=== PATIENT | female | born 1940 | race Caucasian/White ===

== ENCOUNTER 2017-05-07 06:49 | Inpatient (IN) | payer OTHER ==
[~2017-05-07 06:49] MED LIST: BACITRACIN 50,000 UNITS/10 ML SYR IRR ONE; BUPIVACAINE 0.25% 30 ML SDV ONE; CHLORHEXIDINE GLUC HIBICLENS 118 ML BTL TP ONE; CITRATE DEXTROSE SOLN 500 ML BAG ONE; THROMBIN (BOVINE) 20,000 UNIT VIAL TP ONE; ceFAZolin 2 GM/SWFI 2 GM/20 ML SYR IVP ONE; ceFAZolin 3 GM in D5W 100 ML IV ONE
[2017-05-07] MEDS ORDERED: ACETAMINOPHEN 500 MG TAB PO ONE (07:23)
[2017-05-07] MEDS ORDERED: GABAPENTIN 300 MG CAP PO ONE (07:23)
[2017-05-07] MEDS ORDERED: morphINE PF 5 MG/10 ML INJ IT ONE (07:23)
[2017-05-07] MEDS ORDERED: morphINE SR 15 MG TAB PO ONE (07:23)
[2017-05-07] MEDS ORDERED: LR 1,000 ML IV ONE (07:24)
[2017-05-07] MEDS ORDERED: LIDOCAINE 1% 2 ML INJ ID PRN (07:24)
--- NOTE | 2017-05-07 07:45 | PDANEPAE ---
ANE History of Present Illness 76 year old female presents for redo lumbar/sacral fusion. ANE Past Medical History - Cardiovascular History Hx Hypertension: No Hx Arrhythmias: No Hx Chest Pain: No Hx Coronary Artery / Peripheral Vascular Disease: No Hx CHF / Valvular Disease: No Hx Palpitations: No - Pulmonary History Hx COPD: No Hx Asthma/Reactive Airway Disease: No Hx Recent Upper Respiratory Infection: No Hx Oxygen in Use at Home: No Hx Sleep Apnea: No Sleep Apnea Screening Result - Last Documented: Negative - Neurologic History Hx Cerebrovascular Accident: No Hx Seizures: No Hx Dementia: No Neurologic History Comment: HX MIGRAINES - Endocrine History Hx Diabetes: No Hypothyroid: No Hyperthyroid: No Obesity: no - Renal History Hx Renal Disorders: No - Liver History Hx Hepatic Disorders: No Hepatic History Comment: HX PANCREATITIS - Neurological & Psychiatric Hx Hx Neurological and Psychiatric Disorders: No Neurological / Psychiatric History Comment: BIPOLAR. DEPRESSION - Cancer History Hx Cancer: No - Congenital Disorder History Hx Congenital Disorders: No - GI History GERD: no Hx Gastrointestinal Disorders: No Gastrointestinal History Comment: CONSTIPATION - Other Health History Other Health History: LOW BACK PAIN. NEURALGIA. PARESTHESIS. DJD. bruises easily - Chronic Pain History Chronic Pain: Yes (BACK) - Surgical History Prior Surgeries: R SHOULDER 2010. THUMB 2009. LASIK, THUMB 2004. CHOLECYSTECTOMY 2002. BREAST REDUCTION 1975. BTL 1974. ANKLE REPAIR 1974 ANE Review of Systems Review of systems is: negative Review of Systems: - Exercise capacity Exercise capacity: >=4 METS METS (RN): 4 METS ANE Patient History - Allergies Allergies/Adverse Reactions: No Known Allergies Allergy (Unverified 03/29/17 10:34) - Home Medications Home medications: home medication list seen and reviewed Home Medications: Acetaminophen [Tylenol ES 500 mg (*)] 1,000 mg PO BID PRN 08/01/15 [Last Taken 05/06/17] Calcium Carbonate [Oyster Shell Calcium 500 mg (*)] 500 mg PO DAILY 08/01/15 [ Last Taken 04/30/17] Cholecalciferol Vit D3 [Vitamin D3 (*)] 1,000 units PO DAILY 08/01/15 [Last Taken 04/30/17] Citalopram Hydrobromide [celeXA 10 MG] 10 mg PO HS 08/01/15 [Last Taken 05/06/17 ] LORazepam [Ativan (*)] 0.5 mg PO DAILY PRN 08/01/15 [Last Taken 04/30/17] [place] Carbonate 150 mg PO DAILY 08/01/15 [Last Taken 05/07/17 06:15] [place] Carbonate 300 mg PO HS 08/01/15 [Last Taken 05/06/17] Multivitamins [Multivitamin (*)] 1 each PO DAILY 08/01/15 [Last Taken 04/30/17] OXcarbazepine [Trileptal 300mg (*)] 150 mg PO DAILY 08/01/15 [Last Taken 06:15] OXcarbazepine [Trileptal 300mg (*)] 300 mg PO HS 08/01/15 [Last Taken 05/06/17] Simethicone [Gas-X] 62.5 mg PO PRN PRN 08/01/15 [Last Taken 04/30/17] buPROPion SR [Wellbutrin 100mg SR (*)] 100 mg PO DAILY 08/01/15 [Last Taken 06:15] Herbals/Supplements -Info Only 1 ea PO DAILY 03/29/17 [Last Taken 04/30/17] Melatonin [Melatonin 3 MG (*)] 3 mg PO HS 03/29/17 [Last Taken 05/06/17] [place]-3 Fatty Acids [Fish Oil 1000 mg (*)] 1,000 mg PO DAILY 03/29/17 [Last Taken 04/30/17] Polyethylene Glycol 3350 [Miralax 17 gm (*)] 17 gm PO DAILY PRN 03/29/17 [Last Taken 05/06/17] - NPO status NPO Status: no food or drink >8 hours NPO Since - Liquids (Date): 05/06/17 NPO Since - Liquids (Time): 22:00 NPO Since - Solids (Date): 05/06/17 NPO Since - Solids (Time): 19:30 - Anes Hx Anes Hx: post operative cognitive dysfunction Hx Anesthesia Complications (with details): Confusion surrounding the time of a previous surgery. May or may not be related to anesthesia. Inpatient records indicate some concern for delerium/hallucinations related to administration of anti-histamines. - Smoking Hx Smoking Status: Never smoked - Alcohol Use Alcohol Use: Rarely - Family Anes Hx Family Anes Hx: neg - N/A Family Hx Anesthesia Complications: NONE ANE Labs/Vital Signs - Vital Signs Vital Signs: reviewed preoperatively; see RN documention for details Blood Pressure: 122/75 Heart Rate: 73 Respiratory Rate: 16 O2 Sat (%): 94 Height: 160.02 cm Weight: 61.235 kg ANE Physical Exam - Airway Neck exam: FROM Mallampati Score: Class 2 Mouth exam: normal dental/mouth exam - Pulmonary Pulmonary: no respiratory distress - Cardiovascular Cardiovascular: regular rate and rhythym - ASA Status ASA Status: II ANE Anesthesia Plan Anesthesia Plan: general endotracheal anesthesia Total IV Anesthesia: No
--- NOTE | 2017-05-07 07:55 | PDHPUP ---
History & Physical Update H&P update statement: This history and physical update is based on an assessment of the patient which was completed after admission or registration (within 24 hours), but prior to the surgery/procedure. H&P update: H&P reviewed & patient examined, no change in patient's condition since H&P completed H&P changes: Consents signed and site marked.
[2017-05-07] MEDS ORDERED: fentaNYL 100 MCG/2 ML INJ ONE ×2 (08:11→12:30)
[2017-05-07] MEDS ORDERED: PROPOFOL 200 MG/20 ML VIAL ONE (08:11)
[2017-05-07] MEDS ORDERED: PROPOFOL/EMULSION 500 MG/50 ML BOTTLE IV ONE (08:11)
[2017-05-07] MEDS ORDERED: REMIFENTANIL HCL 1 MG VIAL ONE (08:11)
[2017-05-07] MEDS ORDERED: LIDOCAINE 2% 5 ML SDV ONE (08:16)
[2017-05-07] MEDS ORDERED: ROCURONIUM 50 MG/5 ML VIAL ONE (08:16)
[2017-05-07] MEDS ORDERED: PHENYLEPHRINE HCL 100 MCG/ML SYR ONE (08:16)
[2017-05-07] MEDS ORDERED: epHEDrine SULFATE 10 MG/ML SYR ONE (09:06)
[2017-05-07] MEDS ORDERED: ONDANSETRON 4 MG/2 ML VIAL ONE (09:25)
[2017-05-07] MEDS ORDERED: DEXAMETHASONE 4 MG/ML VIAL ONE (09:25)
[2017-05-07] MEDS ORDERED: OXYCODONE/APAP 5/325 TAB PO PRN (09:38)
[2017-05-07] MEDS ORDERED: HYDROmorphONE/DILAUDID 1 MG/ML INJ IVP PRN ×2 (09:38→12:13)
[2017-05-07] MEDS ORDERED: LR 500 ML IV PRN (09:38)
[2017-05-07] MEDS ORDERED: fentaNYL 100 MCG/2 ML INJ IVP PRN (09:38)
[2017-05-07] MEDS ORDERED: NALOXONE HCL 0.4 MG/ML INJ IVP PRN (09:38)
[2017-05-07] MEDS ORDERED: ONDANSETRON 4 MG/2 ML VIAL IVP PRN ×2 (09:38→12:13)
[2017-05-07] MEDS ORDERED: HYDROmorphONE/DILAUDID 2 MG/ML INJ ONE (10:22)
[2017-05-07] MEDS ORDERED: SIMETHICONE PO PRN (12:11)
[2017-05-07] MEDS ORDERED: POLYETHYLENE GLYCOL 3350 17 GM PKT PO PRN (12:11)
[2017-05-07] MEDS ORDERED: ACETAMINOPHEN/CODEINE 300/30MG TAB PO PRN (12:13)
[2017-05-07] MEDS ORDERED: MAGNESIUM HYDROXIDE 30 ML UDCUP PO PRN (12:13)
[2017-05-07] MEDS ORDERED: BISACODYL 10 MG SUPP PR PRN (12:13)
[2017-05-07] MEDS ORDERED: ONDANSETRON DISINTEGRATING 4 MG TAB PO PRN (12:13)
[2017-05-07] MEDS ORDERED: LACTULOSE 20 GM/30 ML UDCUP PO PRN (12:13)
--- NOTE | 2017-05-07 12:21 | POSTOPPROG ---
Post Op Note Date of Operation: 05/07/17 Surgeon: Belkys Santiago [employer] Worker: Dorys Santiago PA-C Anesthesiologist: Nabil Anesthesia: GET(General Endotracheal) Pre-op Diagnosis: lumbar stenosis, adjacent level breakdown Post-op Diagnosis: same Indication: nerve compression Procedure: Lumbar hardware exploration/replacement with L23 lami/TLIF, L2-S1 PSF Findings: Please see dictation Inf/Abcess present in the surg proc area at time of surgery?: No Depth: Organ Space EBL: 50-100 Complications: none Drains: Tin Stinson Specimen(s): none PA Addendum - Addendum .: S: Pt in PACU, c/o lower back pain. O: Awake and alert Nods yes/no NAD, VSS MAEx4 Motor 5/5 BUE/BLE Incision dressed cdi STEFFEN in place Curry in A: 76 yo F s/p Lumbar hardware exploration/replacement with L23 lami/TLIF, L2- S1 PSF P: PT/OT Pain management - avoid oversedation Brace when OOB TEDs, SCDs, lovenox POD#1 Post op xrays pending DC curry in AM D/w Dr Miller Call NS with any issues
[2017-05-07] MEDS ORDERED: SIMETHICONE 80 MG TAB CHEW PO PRN (13:15)
[2017-05-07] MEDS ORDERED: ceFAZolin 2 GM/DEXTROSE 100 ML IV SCH (14:00)
--- NOTE | 2017-05-07 14:57 | GOP ---
[f rep st] OPERATIVE REPORT DATE OF OPERATION: 05/07/2017 SURGEON: Gio Miller MD COPYWRITING INTERN: NENA Vickers ANESTHESIA: General. PREOPERATIVE DIAGNOSIS: 1. Adjacent level breakdown at L2-L3 with severe spinal stenosis. 2. History of prior lumbar fusion, L3 through S1, in July 2015. 3. Questionable pseudoarthrosis at L5-S1, with some hardware loosening on the left at S1. 4. Low back pain. 5. Lower extremity claudication. 6. Treatment refractory to nonoperative intervention. POSTOPERATIVE DIAGNOSIS: 1. Adjacent level breakdown at L2-L3 with severe spinal stenosis. 2. History of prior lumbar fusion, L3 through S1, in July 2015. 3. Questionable pseudoarthrosis at L5-S1, with some hardware loosening on the left at S1. 4. Low back pain. 5. Lower extremity claudication. 6. Treatment refractory to nonoperative intervention. PROCEDURE PERFORMED: 1. Posterior arthrodesis, with approach to L2, L3, L4, L5, S1. 2. Segmental instrumentation removal with bilateral violet removal from L3 through S1. 3. Replacement of left S1 pedicle screw. 4. Exploration of lumbar hardware. 5. Placement of new bilateral pedicle screws in L2 from Medtronic Solera 4.75 system. 6. Posterolateral fusion on the right between L2-L3 and L5-S1 with morselized autograft and allograft. 7. Decompressive laminectomy, L2-L3, with bilateral medial facetectomies. 8. Left-sided L2-L3 transforaminal lumbar interbody fusion with a 7 x 23 mm titanium PEEK elevate cage with morselized autograft and allograft. 9. Posterolateral fusion with bilateral violet placement from L2 through S1 from the Medtronic Solera 4.75 system. 10. Use of intraoperative 3D Stealth navigation. 11. Use of intraoperative fluoroscopy, less than 1 hour physician time. 12. Use of neuromonitoring. 13. Use of operative microscope. 14. Injection of preservative-free intrathecal narcotics. FINDINGS: there did not appear to be any movement between the L5/S1 screws but the single S1 screw loose on hardware exploration SPECIMENS: None. ESTIMATED BLOOD LOSS: 150 mL. INDICATIONS: The patient is a 76-year-old woman who has undergone a prior L3 through S1 fusion. She presented with worsening pain and had evidence of adjacent level breakdown at L2-L3 with severe spinal stenosis. CT demonstrated questionable pseudoarthrosis at L5-S1, with some haloing of the left S1 pedicle screw. After discussion of the risks, benefits, and treatment alternatives, we decided proceed forth with surgery as described above. DESCRIPTION OF PROCEDURE: Patient was brought to the operating theater and underwent general endotracheal anesthesia with no complications. She had Venodynes, SUZANNE hose and the appropriate lines placed by Anesthesia. She was flipped prone onto the Tin table. All bony processes were inspected and padded. The lower lumbar region was prepped and draped in the usual sterile surgical fashion. A time-out was completed per protocol. The patient received antibiotics within 1 hour of incision. The prior lumbar incision was infiltrated with Marcaine with epinephrine and taken down with the scalpel blade. Using the monopolar, it was then taken down in the midline through the previous scar tissue. A subperiosteal dissection carried out at the spinous process of L2 bilaterally to the transverse process of L2 to identify the previous hardware at L3, L4, L5, and S1, which was then exposed. We then sequentially removed the cap screws bilaterally L3 through S1 levels, as well as the bilateral rods, which were then passed off the field. I used the distractor to explore the hardware at L5-S1 and was not able to move the distract or move the hardware between L5 and S1; in which case, I did not feel that she had a pseudoarthrosis. I then sequentially removed the left- sided S1 pedicle screw, which dd feel loose, and replaced it with a 7.5 x 45 mm screw from the Medtronic Solera 4.75 system. We attached the 3D Stealth navigation clamp to the spinous process of L2 and completed a 3D Stealth navigation spin. Using 3D Stealth navigation, we placed the check pilot holes for the new bilateral pedicle screws in L2. The holes were manually palpated with no evidence of any cortical breaches. We then tapped and placed 5.5 x 50 mm screw on the left at L2 and a 5.5 x 40 mm screw on the right at L2. Another 3D Stealth navigation spin demonstrated good placement of the hardware. The right- sided pedicle screw was noted be somewhat lateral in the pedicle itself; however , the pedicles themselves were smaller than the diameter of the screws, and therefore did not feel that it was worth changing the screw out. I felt that the purchase for this was better, given the fact that it was bicortical and was stronger rather than placing a 4.[address]. There were no changes in neuromonitoring. The microscope was then brought into field to assist with microscopic dissection and to maintain illumination and magnification. Using a combination of the bur tip on the drill bit, Kerrison punches, and a Leksell rongeur, we completed decompressive laminectomy at L2-L3 with bilateral medial facetectomies. We resected the pars on the left side between L2-3 and retracted the thecal sac medially. We completed a left-sided L2-L3 diskectomy. We prepared the cartilaginous endplates and measured the interbody space. We then placed a 7 x 23 mm titanium PEEK elevate cage filled with morselized autograft and allograft anteriorly and toward the midline. We packed additional morselized autograft into the disk space for the interbody fusion. We let down the distraction and decorticated the bone on the right side between L2-L3. We then moved down to the L5-S1 level on the right side, and we decorticated the bone and removed the scar tissue. We then placed 2 lordotic rods in the heads of the screws between L2 and S1 and secured them now with cap screws, which were then tightened per the pretzel twisting machine operator's setting. We placed morselized autograft and allograft into the right side between L2-L3 and L5-S1 for the posterolateral fusion. We irrigated the wound copiously with bacitracin irrigation and injected preservative-free intrathecal narcotics. A drain was left in the subfascial space and the wound then closed in multiple layers, using Vicryl sutures in the deep layers and Dermabond for the skin. The patient's wounds were dressed sterilely. She was flipped supine and onto the transport cart. She was awakened, extubated, and taken to the recovery room in stable condition. There were no complications and no noted changes on neuromonitoring throughout the procedure. COMPLICATIONS: None. /[id number]/MODL MTDD
--- NOTE | 2017-05-07 16:17 | ASMTCMCOM ---
CM Note CM Note Notes: 05/07/2017 Case Management Note Reviewed chart. Pt is and retired. Family involved in cares. Case Management d/c needs: to be determined pending PT and OT eval recommendations. Case management to follow. Date Signed: 05/07/2017 04:16 PM Electronically Signed By:Elle Vazquez RN
[2017-05-07] MEDS: ceFAZolin 2 GM in D5W 100 ML IV SCH (16:39)
[2017-05-07] MEDS: POLYETHYLENE GLYCOL 3350 17 GM PKT PO PRN (16:40)
[2017-05-07] MEDS: ACETAMINOPHEN 500 MG TAB PO SCH ×2 (16:40→21:08)
[2017-05-07] MEDS: METHOCARBAMOL 750 MG TAB PO PRN (16:40)
[2017-05-07] MEDS: NS W/ 20 KCl/L 1,000 ML IV SCH (16:46)
--- NOTE | 2017-05-07 16:49 | POSTANESTH ---
Post Anesthetic Evaluation Cardiovascular Status: Normal, Stable, Similar to Pre-Op Cond Respiratory Status: Normal, Stable, Similar to Pre-op Cond. Level of Consciousness/Mental Status: Can Participate in Eval, Mildly Sleepy, Arousable Pain Control: Adequate, Prn Tx Ordered Nausea/Vomiting Control: Adequate, Prn Tx Ordered Complications Possibly Related to Anesthesia: None Noted
[2017-05-07] MEDS ORDERED: NON-FORMULARY NEW DRUG (Citalopram Hydrobromide [Celexa 10 Mg] 10 MG) PO SCH (21:00)
[2017-05-07] MEDS ORDERED: LITHIUM CARBONATE 300 MG PO SCH (21:00)
[2017-05-07] MEDS: SENNOSIDES/DOCUSATE SODIUM TAB PO SCH (21:09)
[2017-05-07] MEDS: MELATONIN 3 MG TAB PO SCH (21:09)
[2017-05-07] MEDS: FAMOTIDINE 20 MG TAB PO SCH (21:10)
[2017-05-07] MEDS: CITALOPRAM 20 MG TAB PO SCH (21:10)
[2017-05-07] MEDS: LORazepam 0.5 MG TAB PO PRN (21:23)
[2017-05-07] MEDS: diphenhydrAMINE 25 MG CAP PO PRN (21:23)
[2017-05-07] MEDS: OXcarbazepine 300 MG TAB PO SCH (23:28)
[2017-05-07] MEDS: LITHIUM CARBONATE 300 MG TAB PO SCH (23:28)
[2017-05-08] MEDS: ceFAZolin 2 GM in D5W 100 ML IV SCH (01:45)
[2017-05-08] MEDS: diphenhydrAMINE 25 MG CAP PO PRN (04:10)
[2017-05-08] MEDS: NS W/ 20 KCl/L 1,000 ML IV SCH (04:15)
[2017-05-08] MEDS: ACETAMINOPHEN 500 MG TAB PO SCH ×3 (06:24→22:44)
--- NOTE | 2017-05-08 08:18 | SOAPPROG ---
SOALESHA Progress Note Assessment/Plan: Assessment: 76 yo F POD #1 L2-S1 fusion Plan: neuro: stable and doing well overall :) PT/OT scd/abelardo/lovenox for dvt prophylaxis formal x-rays today please call with neuro changes discussed with Dr Miller 05/08/17 08:16 Subjective: minimal back pain, no leg pain, no weakness. Objective: Vital Signs Temp Pulse Resp BP Pulse Ox 36.9 C 80 19 105/56 L 97 05/08/17 04:00 05/08/17 04:00 05/08/17 04:00 05/08/17 04:00 05/08/17 04:00 05/07/17 05/08/17 05/09/17 05:59 05:59 05:59 Intake Total 950 Output Total 1160 Balance -210 AAOx4, +FC PERRL, EOMI, no facial droop 5/5 + light touch C/D/I ICD10 Worksheet Patient Problems: Problems Problem Status Onset Lumbar degenerative disc disease Acute Lumbar stenosis Acute
[2017-05-08] MEDS: MULTIVITAMINS 1 EACH TAB PO SCH (08:59)
[2017-05-08] MEDS: CALCIUM CARBONATE 500 MG TAB PO SCH (08:59)
[2017-05-08] MEDS: CHOLECALCIFEROL VIT D3 1,000 UNITS TAB PO SCH (09:00)
[2017-05-08] MEDS: SENNOSIDES/DOCUSATE SODIUM TAB PO SCH ×2 (09:00→20:07)
[2017-05-08] MEDS ORDERED: LITHIUM CARBONATE 150 MG PO SCH (09:00)
[2017-05-08] MEDS: FAMOTIDINE 20 MG TAB PO SCH ×2 (09:01→20:07)
[2017-05-08] MEDS: buPROPion SR 100 MG TAB PO SCH (09:01)
[2017-05-08] MEDS: ENOXAPARIN 40 MG/0.4 ML SYR SC SCH (09:02)
[2017-05-08] MEDS: LITHIUM CARBONATE 300 MG TAB PO SCH ×2 (09:02→20:06)
[2017-05-08] MEDS: OXcarbazepine 300 MG TAB PO SCH ×2 (09:06→20:07)
[2017-05-08] MEDS ORDERED: FLU VACC QS 2017-18 (3YR+)/PF 0.5 ML SYR (FLUARIX QUAD) IM ONE (09:08)
[2017-05-08] MEDS: POLYETHYLENE GLYCOL 3350 17 GM PKT PO PRN (14:31)
[2017-05-08] MEDS: METHOCARBAMOL 750 MG TAB PO PRN ×2 (16:45→22:45)
--- NOTE | 2017-05-08 16:59 | ASMTCMCOM ---
CM Note CM Note Notes: Pt s/p L2-S1 fusion. PT/OT recommending homecare. Unable to speak with pt today. CM to follow. Date Signed: 05/08/2017 04:59 PM Electronically Signed By:EDWARD Abrams
[2017-05-08] MEDS: Loratadine [Claritin] 10 MG PO PRN (18:30)
[2017-05-08] MEDS: CITALOPRAM 20 MG TAB PO SCH (20:04)
[2017-05-08] MEDS: traMADol 50 MG TAB PO PRN (20:05)
[2017-05-08] MEDS: MELATONIN 3 MG TAB PO SCH (20:05)
[2017-05-08] MEDS: LORazepam 0.5 MG TAB PO PRN (20:07)
[2017-05-08] MEDS: oxyCODONE IR 5 MG TAB PO PRN (20:07)
[2017-05-09] MEDS: oxyCODONE IR 5 MG TAB PO PRN ×3 (00:13→23:59)
[2017-05-09] MEDS: ACETAMINOPHEN 500 MG TAB PO SCH ×3 (04:46→20:28)
[2017-05-09] MEDS: METHOCARBAMOL 750 MG TAB PO PRN ×3 (04:50→22:31)
--- NOTE | 2017-05-09 07:44 | NEUSURGPN ---
Assessment/Plan: Assessment: 76 yo F POD #2 L2-S1 fusion Plan: neuro: stable and doing well overall PT/OT Pain management - continue current regimen, tolerating oxycodone scd/abelardo/lovenox for dvt prophylaxis Post op x-rays show stable hardware DC STEFFEN drain at noon please call with neuro changes Pt seen and discussed with Dr Miller Subjective: Pt resting in bed, wants to sleep. No memory issues. Objective: AAOx3 NAD VSS MAEx4 Motor 5/5 BLE Incision dressed cdi +LT Urinary Catheter in Place: No Catheter Insertion Date: 05/07/17 - Physician Discussed Patient with DrNeil: Paul Patient Seen by : Paul Neurosurgery Physical Exam - Vitals, I&O, Labs I and O 05/08/17 05/09/17 05/10/17 05:59 05:59 05:59 Intake Total 950 800 Output Total 1160 2675 Balance -210 -1875 Weight 61.235 kg Intake: Oral (ml) 850 800 IV Intake (ml) 100 Output: Urine (ml) 900 2450 Catheter 900 Toilet 2450 STEFFEN Drain Output (ml) 260 225 #1 Posterior Back 260 225 Other: Intake Quantity Yes Sufficient Number of Voids Toilet 2 Vital Signs Temp Pulse Resp BP Pulse Ox 36.8 C 79 18 118/67 91 L 05/09/17 04:00 05/09/17 04:00 05/09/17 04:00 05/09/17 04:00 05/09/17 04:00 ICD10 Worksheet Patient Problems: Problems Problem Status Onset Lumbar degenerative disc disease Acute Lumbar stenosis Acute
[2017-05-09 08:04] VITALS: RESP 16
[2017-05-09] MEDS: FAMOTIDINE 20 MG TAB PO SCH ×2 (08:26→20:29)
[2017-05-09] MEDS: MULTIVITAMINS 1 EACH TAB PO SCH (08:27)
[2017-05-09] MEDS: CHOLECALCIFEROL VIT D3 1,000 UNITS TAB PO SCH (08:27)
[2017-05-09] MEDS: LITHIUM CARBONATE 300 MG TAB PO SCH ×2 (08:27→20:30)
[2017-05-09] MEDS: SENNOSIDES/DOCUSATE SODIUM TAB PO SCH ×2 (08:28→20:27)
[2017-05-09] MEDS: OXcarbazepine 300 MG TAB PO SCH ×2 (08:28→20:30)
[2017-05-09] MEDS: CALCIUM CARBONATE 500 MG TAB PO SCH (08:28)
[2017-05-09] MEDS: buPROPion SR 100 MG TAB PO SCH (08:28)
[2017-05-09] MEDS: ENOXAPARIN 40 MG/0.4 ML SYR SC SCH (08:29)
[2017-05-09] MEDS: POLYETHYLENE GLYCOL 3350 17 GM PKT PO PRN (08:57)
[2017-05-09] MEDS: traMADol 50 MG TAB PO PRN ×2 (10:26→22:31)
--- NOTE | 2017-05-09 14:39 | ASMTCMCOM ---
CM Note CM Note Notes: I spoke with patient and her who are amenable to home care PT/OT. She will likely discharge tomorrow. Angeline at [facility] can accept patient. CM will follow for discharge planning. Date Signed: 05/09/2017 02:38 PM Electronically Signed By:Clover Hua RN
[2017-05-09] MEDS: Loratadine [Claritin] 10 MG PO PRN (16:41)
[2017-05-09] MEDS: MELATONIN 3 MG TAB PO SCH (20:28)
[2017-05-09] MEDS: CITALOPRAM 20 MG TAB PO SCH (20:29)
[2017-05-09] MEDS: LORazepam 0.5 MG TAB PO PRN (20:29)
[2017-05-09 22:41] VITALS: TEMP 98.4
[2017-05-10] MEDS: oxyCODONE IR 5 MG TAB PO PRN (02:34)
[2017-05-10] MEDS: ACETAMINOPHEN 500 MG TAB PO SCH (05:27)
[2017-05-10 07:37] VITALS: BP 110/52; PULSE 80
--- NOTE | 2017-05-10 08:10 | NEUSURGPN ---
Assessment/Plan: Assessment: 76 yo F POD #3 L2-S1 fusion Plan: neuro: stable and doing well overall PT/OT Pain management - continue current regimen, tolerating oxycodone scd/abelardo/lovenox for dvt prophylaxis Post op x-rays show stable hardware Dispo planning please call with neuro changes Pt seen and discussed with Dr Miller Subjective: low back pain, okay to move. Denies any new leg pain, numbness, tingling or weakness Objective: NAD A&Ox3 MAEx4 5/5 and equal in BUE and BLE. Incision c/d/i Catheter Insertion Date: 05/07/17 - Physician Discussed Patient with : Paul Neurosurgery Physical Exam - Vitals, I&O, Labs I and O 05/09/17 05/10/17 05/11/17 05:59 05:59 05:59 Intake Total 800 700 Output Total 2675 2110 Balance -1875 -1410 Intake: Oral (ml) 800 700 Output: Urine (ml) 2450 2050 Bedside Commode 1050 Toilet 2450 1000 STEFFEN Drain Output (ml) 225 60 #1 Posterior Back 225 60 Other: Intake Quantity Yes Yes Sufficient Number of Voids Bedside Commode 1 Toilet 2 Vital Signs Temp Pulse Resp BP Pulse Ox 36.9 C 80 16 110/52 L 94 05/10/17 07:36 05/10/17 07:36 05/10/17 07:36 05/10/17 07:36 05/10/17 07:36 ICD10 Worksheet Patient Problems: Problems Problem Status Onset Lumbar degenerative disc disease Acute Lumbar stenosis Acute
--- NOTE | 2017-05-10 08:15 | PDIAF ---
- Diagnosis Code Status: Full Code - Medication Management Discharge Medications: Medications to Continue on Transfer Calcium Carbonate [Oyster Shell Calcium 500 mg (*)] 500 mg PO DAILY 08/01/15 [ Last Taken 04/30/17] Cholecalciferol Vit D3 [Vitamin D3 (*)] 1,000 units PO DAILY 08/01/15 [Last Taken 04/30/17] Citalopram Hydrobromide [celeXA 10 MG] 10 mg PO HS 08/01/15 [Last Taken 05/06/17 ] LORazepam [Ativan (*)] 0.5 mg PO DAILY PRN 08/01/15 [Last Taken 04/30/17] [place] Carbonate 150 mg PO DAILY 08/01/15 [Last Taken 05/07/17 06:15] [place] Carbonate 300 mg PO HS 08/01/15 [Last Taken 05/06/17] Multivitamins [Multivitamin (*)] 1 each PO DAILY 08/01/15 [Last Taken 04/30/17] OXcarbazepine [Trileptal 300mg (*)] 150 mg PO DAILY 08/01/15 [Last Taken 06:15] OXcarbazepine [Trileptal 300mg (*)] 300 mg PO HS 08/01/15 [Last Taken 05/06/17] Simethicone [Gas-X] 62.5 mg PO PRN PRN 08/01/15 [Last Taken 04/30/17] buPROPion SR [Wellbutrin 100mg SR (*)] 100 mg PO DAILY 08/01/15 [Last Taken 06:15] Melatonin [Melatonin 3 MG (*)] 3 mg PO HS 03/29/17 [Last Taken 05/06/17] Polyethylene Glycol 3350 [Miralax 17 gm (*)] 17 gm PO DAILY PRN 03/29/17 [Last Taken 05/06/17] Loratadine [Claritin] 10 mg PO DAILY PRN 05/08/17 [Last Taken Unknown] Acetaminophen [Tylenol ES 500 mg (*)] 1,000 mg PO Q8HRS tab 05/10/17 [Last Taken Unknown] Methocarbamol [Robaxin 750 mg (*)] 750 mg PO QID PRN 30 Days tab 05/10/17 [ Last Taken Unknown] Sennosides/Docusate Sodium [Senokot-S] 1 - 2 tab PO BID tab 05/10/17 [Last Taken Unknown] oxyCODONE IR [Oxycodone Ir (*)] 5 - 10 mg PO Q4HRS PRN 30 Days tab 05/10/17 [ Last Taken Unknown] traMADol [Ultram 50 mg (*)] 50 - 100 mg PO Q6HRS PRN 30 Days tab 05/10/17 [ Last Taken Unknown] Discharge Medications: Refer to the Discharge Home Medication list for PRN reason. - Orders Services needed: Registered Nurse, Physical Therapy, Occupational Therapy Diet Recommendation: no restrictions on diet - Follow Up Care Current Providers and Referrals: Lottie Mccormack PA [Primary Care Provider] -
[2017-05-10] MEDS: SENNOSIDES/DOCUSATE SODIUM TAB PO SCH (09:19)
[2017-05-10] MEDS: CALCIUM CARBONATE 500 MG TAB PO SCH (09:20)
[2017-05-10] MEDS: METHOCARBAMOL 750 MG TAB PO PRN (09:20)
[2017-05-10] MEDS: buPROPion SR 100 MG TAB PO SCH (09:20)
[2017-05-10] MEDS: MULTIVITAMINS 1 EACH TAB PO SCH (09:21)
[2017-05-10] MEDS: CHOLECALCIFEROL VIT D3 1,000 UNITS TAB PO SCH (09:21)
[2017-05-10] MEDS: LITHIUM CARBONATE 300 MG TAB PO SCH (09:21)
[2017-05-10] MEDS: OXcarbazepine 300 MG TAB PO SCH (09:21)
[2017-05-10] MEDS: FAMOTIDINE 20 MG TAB PO SCH (09:21)
[2017-05-10] MEDS: ENOXAPARIN 40 MG/0.4 ML SYR SC SCH (09:22)
[2017-05-10] MEDS: POLYETHYLENE GLYCOL 3350 17 GM PKT PO PRN (09:23)
--- NOTE | 2017-05-10 10:52 | ASMTCMCOM ---
CM Note CM Note Notes: Pt will dc home today w/ and will be followed by [facility]. Notified Angeline at [facility]; met w/pt and and discussed HHC, medicare homebound policy. They are in agreement w/dc poc. [facility] # provided. Date Signed: 05/10/2017 10:52 AM Electronically Signed By:Shyann Stiles RN
[2017-05-10 12:05] VITALS: O2SAT 93
--- NOTE | 2017-05-11 16:14 | ASDISCHSUM ---
Discharge Information Plan Status:Home with Home Health Medically Cleared to Leave: Discharge Date:05/10/2017 12:48 PM CM D/C Disposition:Home Health Service ADT D/C Disposition:[id number] Projected Discharge Date:05/10/2017 11:00 AM Transportation at D/C:Family Discharge Delay Reason: Follow-Up Date:05/10/2017 11:00 AM Discharge Slot: Final Diagnosis: Placement Information Referral Type:*Home Health Care Services Referral ID:[id number] Provider Name:[facility] Address 1:[address] Address 2: City:[place] Selection Factors: State:[place] Patient Contact Information Contact Name:MOHINDER Relationship: Address:[address] Home Phone: City:[place] Alternate Phone: State/Zip Code:[place] [address] Email: Financial Information Financial Class: Primary Plan Desc:MEDICARE INPATIENT Primary Plan Number:[id number] Secondary Plan Desc:BOB PPO Secondary Plan Number:[id number] Assessment Information [facility] CM Progress Note CM Note CM Note Notes: 05/07/2017 Case Management Note Reviewed chart. Pt is and retired. Family involved in cares. Case Management d/c needs: to be determined pending PT and OT eval recommendations. Case management to follow. Date Signed: 05/07/2017 04:16 PM Electronically Signed By:Elle Vazquez RN [facility] CM Progress Note CM Note CM Note Notes: Pt s/p L2-S1 fusion. PT/OT recommending homecare. Unable to speak with pt today. CM to follow. Date Signed: 05/08/2017 04:59 PM Electronically Signed By:EDWARD Abrams [facility] CM Progress Note CM Note CM Note Notes: I spoke with patient and her who are amenable to home care PT/OT. She will likely discharge tomorrow. Angeline at [facility] can accept patient. CM will follow for discharge planning. Date Signed: 05/09/2017 02:38 PM Electronically Signed By:Clover Hua RN [facility] CM Progress Note CM Note CM Note Notes: Pt will dc home today w/ and will be followed by [facility]. Notified Angeline at [facility]; met w/pt and and discussed [facility], medicare homebound policy. They are in agreement w/dc poc. [facility] # provided. Date Signed: 05/10/2017 10:52 AM Electronically Signed By:Shyann Stiles RN Intervention Information Intervention Type:*IM-Signed Date of Service:05/10/2017 11:13 AM Patient Type:Inpatient Staff Member:Anna Espinosa Hours: Discipline: Severity: Comment:
== END 2017-05-10 12:48 | disposition home health service (06) | DRG 454 ==
LOC: F3N 06:49
PROVIDERS: ADMIT Neurological Surgery; ATTEND Neurological Surgery
PROC: 4A1004G Monitoring of Central Nervous Electrical Activity, Intraoperative, Open Approach (ICD-10-PCS; principal; 2017-05-07 08:15)
PROC: 0SG10AJ Fusion of 2 or more Lumbar Vertebral Joints with Interbody Fusion Device, Posterior Approach, Anterior Column, Open Approach (ICD-10-PCS; principal; 2017-05-07 08:15)
PROC: 0SG30AJ Fusion of Lumbosacral Joint with Interbody Fusion Device, Posterior Approach, Anterior Column, Open Approach (ICD-10-PCS; principal; 2017-05-07 08:15)
PROC: 0SG10J1 Fusion of 2 or more Lumbar Vertebral Joints with Synthetic Substitute, Posterior Approach, Posterior Column, Open Approach (ICD-10-PCS; principal; 2017-05-07 08:15)
PROC: 0SG30J1 Fusion of Lumbosacral Joint with Synthetic Substitute, Posterior Approach, Posterior Column, Open Approach (ICD-10-PCS; principal; 2017-05-07 08:15)
PROC: 8E0WXBZ Computer Assisted Procedure of Trunk Region (ICD-10-PCS; principal; 2017-05-07 08:15)
PROC: 0SP00AZ Removal of Interbody Fusion Device from Lumbar Vertebral Joint, Open Approach (ICD-10-PCS; principal; 2017-05-07 08:15)
DX: M48.062 Spinal stenosis, lumbar region with neurogenic claudication (principal); T84.296A Other mechanical complication of internal fixation device of vertebrae, initial encounter; F31.9 Bipolar disorder, unspecified; E78.5 Hyperlipidemia, unspecified; E05.90 Thyrotoxicosis, unspecified without thyrotoxic crisis or storm; Z79.899 Other long term (current) drug therapy; Z23 Encounter for immunization
CPT/HCPCS: 97116-GP; 97161-GP; 97166-GO; 97532-GO; 97535-GO; C1713; G0008; G8978-GP-CJ; G8979-GP-CI; G8987-GO-CK; G8988-GO-CI; G8989-GO-CI; J0171; J0690; J1100; J1170; J1650; J2274; J2370; J2405; J2704; J3010; J7060

== ENCOUNTER 2017-07-06 13:59 | Emergency (ER) | payer OTHER ==
[2017-07-06 14:30] VITALS: TEMP 98.6
[2017-07-06] MEDS ORDERED: NS 1,000 ML IV ONE (14:59)
[2017-07-06] MEDS ORDERED: MECLIZINE HCL 25 MG TAB PO ONE (15:00)
--- NOTE | 2017-07-06 15:04 | EDPHY ---
H & P Time Seen by Provider: 07/06/17 14:52 HPI/ROS: CHIEF COMPLAINT: Dizziness HISTORY OF PRESENT ILLNESS: Patient is a 77-year-old female with a history of bipolar disorder who presents to the emergency department with acute onset of dizziness yesterday. The patient states that she was at the counter when she suddenly developed vertigo and a feeling that the room was spinning. It is worse with movement of her head. Improved when she lays still and closes her eyes. She has no weakness or numbness. No headache. No neck pain. Patient denies any recent trauma or falls. The patient did restart Robaxin yesterday prior to the onset of her symptoms, but she states that she had a long history of taking this medication with no complications. The patient does not feel uncoordinated. REVIEW OF SYSTEMS: My complete review of systems is negative except as mentioned in the HPI. Past Medical/Surgical History: Includes bipolar, chronic pain Past surgical history: Back surgery, orthopedic surgery, cholecystectomy Social history: Patient denies smoking Smoking Status: Never smoked Physical Exam: GENERAL: Well-appearing, in no acute distress, alert. HEENT: Eyes normal to inspection, normal pharynx, no signs of dehydration. No nystagmus NECK: [No thyromegaly, no lymphadenopathy, supple. RESPIRATORY: Clear to auscultation bilaterally, no rales, rhonchi or wheezing. CVS: Regular rate and rhythm, no rubs, murmurs, or gallops. ABDOMEN: Soft, nontender, nondistended, no organomegaly. BACK: Normal to inspection, no CVA tenderness. SKIN: Normal color, no rash, warm, dry. No pallor. EXTREMITIES: No pedal edema, no calf tenderness, no Homans sign or cords, no joint swelling. NEURO/PSYCH: Higher functions: Alert and Oriented x3. Normal speech and cognition. Normal mood and affect. Cranial nerves: Normal as tested. Cerebellar: Normal as tested. Good finger to nose, good [id number], normal gait. Peripheral exam: Normal motor exam. Normal sensation. Normal reflexes. Constitutional: Initial Vital Signs Temperature (C) 37 C 07/06/17 14:28 Heart Rate 74 07/06/17 14:28 Respiratory Rate 18 07/06/17 14:28 Blood Pressure 136/85 H 07/06/17 14:28 O2 Sat (%) 94 07/06/17 14:28 O2 Delivery Mode Room Air Allergies/Adverse Reactions: No Known Allergies Allergy (Unverified 03/29/17 10:34) Home Medications: Medication Instructions Recorded Calcium Carbonate [Oyster Shell 500 mg PO DAILY 08/01/15 Calcium 500 mg (*)] Citalopram Hydrobromide [celeXA 10 10 mg PO HS 08/01/15 MG] LORazepam [Ativan (*)] 0.5 mg PO DAILY PRN 08/01/15 [place] Carbonate 150 mg PO DAILY 08/01/15 [place] Carbonate 300 mg PO HS 08/01/15 Multivitamins [Multivitamin (*)] 1 each PO DAILY 08/01/15 OXcarbazepine [Trileptal 300mg (*)] 150 mg PO DAILY 08/01/15 OXcarbazepine [Trileptal 300mg (*)] 300 mg PO HS 08/01/15 buPROPion SR [Wellbutrin 100mg SR 100 mg PO DAILY 08/01/15 (*)] Melatonin [Melatonin 3 MG (*)] 3 mg PO HS 03/29/17 Polyethylene Glycol 3350 [Miralax 17 gm PO DAILY PRN 03/29/17 17 gm (*)] Acetaminophen [Tylenol ES 500 mg 1,000 mg PO Q8HRS tab 05/10/17 (*)] Methocarbamol [Robaxin 750 mg (*)] 750 mg PO QID PRN 30 Days tab 05/10/17 traMADol [Ultram 50 mg (*)] 50 - 100 mg PO Q6HRS PRN 30 Days 05/10/17 tab LORazepam [Ativan (*)] 1 mg PO TID #9 tab 07/06/17 Meclizine HCl [Meclizine HCl 25 mg 25 mg PO TID #11 tab 07/06/17 (RX,OTC)] Medical Decision Making - Diagnostics Imaging Results: Imaging Impressions Head CT 07/06/17 14:59 Impression: Head CT stable and normal. Results called to Dr. Rutledge at 3:38 PM General information for patients regarding this examination can be found at [email or web address]. If you have questions or comments about this report, please contact me at [phone] (hospital) or [phone] (cell). ED Course/Re-evaluation: In the emergency department I discussed possible etiologies with the patient. I answered all her questions. She was given meclizine 25 mg orally for her dizziness. Laboratory studies, EKG and head CT were ordered. EKG shows normal sinus rhythm, normal rate, normal axis, normal intervals. There are no ST or T-wave abnormalities. EKG is normal as interpreted by me. I reviewed the patient's laboratory studies. CBC is notable for mild anemia. Chemistry panel is unremarkable. Troponin was negative. CT head: Please refer the dictated report. No acute disease noted. 17 15: I discussed the results with the patient. I answered all her questions. Patient states the meclizine did not improve her vertigo. She is still feeling dizzy as if the room is spinning. She has no focal neurologic deficits on exam. No nystagmus. The patient was given Ativan 1 mg IV. 1800: I rechecked the patient. She states she is feeling better. She requested discharge home. I offered her admission if she felt like she was unstable. She would prefer discharge. She was given warnings prior to leaving. Differential Diagnosis: My differential includes but is not limited to peripheral vertigo, Meniere's disease, ischemic CVA, hemorrhagic CVA, dissection, aneurysm, electrolyte abnormality, sugar abnormality, dysrhythmia, anemia - Data Points Laboratory Results: Laboratory Results 07/06/17 16:00 07/06/17 16:00 07/06/17 07/06/17 16:00 16:00 WBC 4.86 10^3/uL 10^3/uL (3.80-9.50) RBC 4.10 10^6/uL L 10^6/uL (4.18-5.33) Hgb 12.5 g/dL L g/dL (12.6-16.3) Hct 36.7 % L % (38.0-47.0) MCV 89.5 fL fL (81.5-99.8) MCH 30.5 pg pg (27.9-34.1) MCHC 34.1 g/dL g/dL (32.4-36.7) RDW 13.2 % % (11.5-15.2) Plt Count 166 10^3/uL 10^3/uL (150-400) MPV 10.2 fL fL (8.7-11.7) Neut % (Auto) 62.8 % % (39.3-74.2) Lymph % (Auto) 28.0 % % (15.0-45.0) [place] % (Auto) 6.2 % % (4.5-13.0) Eos % (Auto) 1.6 % % (0.6-7.6) Baso % (Auto) 0.6 % % (0.3-1.7) Nucleat RBC Rel Count 0.0 % % (0.0-0.2) Absolute Neuts (auto) 3.05 10^3/uL 10^3/uL (1.70-6.50) Absolute Lymphs (auto) 1.36 10^3/uL 10^3/uL (1.00-3.00) Absolute Monos (auto) 0.30 10^3/uL 10^3/uL (0.30-0.80) Absolute Eos (auto) 0.08 10^3/uL 10^3/uL (0.03-0.40) Absolute Basos (auto) 0.03 10^3/uL 10^3/uL (0.02-0.10) Absolute Nucleated RBC 0.00 10^3/uL 10^3/uL (0-0.01) Immature Gran % 0.8 % % (0.0-1.1) Immature Gran # 0.04 10^3/uL 10^3/uL (0.00-0.10) Sodium 138 mEq/L mEq/L (134-144) Potassium 4.1 mEq/L mEq/L (3.5-5.2) Chloride 106 mEq/L mEq/L (97-110) Carbon Dioxide 23 mEq/l mEq/l (22-31) Anion Gap 9 mEq/L mEq/L (8-16) BUN 16 mg/dL mg/dL (7-23) Creatinine 0.8 mg/dL mg/dL (0.6-1.0) Estimated GFR > 60 Glucose 106 mg/dL H mg/dL (70-100) Calcium 10.3 mg/dL mg/dL (8.5-10.4) Troponin I < 0.012 ng/mL ng/mL (0.000-0.034) Medications Given: Discontinued Medications Sodium Chloride (Ns) 1,000 mls @ 0 mls/hr IV ONCE ONE; Wide Open PRN Reason: Protocol Stop: 07/06/17 15:00 Last Admin: 07/06/17 15:42 Dose: 1,000 mls Lorazepam (Ativan Injection) 1 mg IVP EDNOW ONE Stop: 07/06/17 17:19 Last Admin: 07/06/17 17:25 Dose: 1 mg Meclizine HCl (Meclizine Hcl) 25 mg PO EDNOW ONE Stop: 07/06/17 15:01 Last Admin: 07/06/17 15:04 Dose: 25 mg Departure - Departure Disposition: Home, Routine, Self-Care Clinical Impression: Dizziness Condition: Good Instructions: Dizziness (ED) Additional Instructions: Return with increasing dizziness, headache, weakness, numbness or any other concerns. Make sure you have assistance when walking to make sure you do not fall. Referrals: Lottie Mccormack PA [Primary Care Provider] - 2-3 days, call for appt. Prescriptions: LORazepam [Ativan (*)] 1 mg PO TID #9 tab Meclizine HCl [Meclizine HCl 25 mg (RX,OTC)] 25 mg PO TID #11 tab
--- NOTE | 2017-07-06 15:40 | CPEKG ---
Heart Rate: 69 RR Interval: 870 P-R Interval: 168 QRSD Interval: 88 QT Interval: 408 QTC Interval: 437 P [place]: 81 QRS [place]: 35 T Wave [place]: 75 EKG Severity - NORMAL ECG - EKG Impression: SINUS RHYTHM Electronically Signed By: Dione Rutledge 06-Jul-2017 21:34:35
[2017-07-06 16:10] LABS: PLATELET COUNT 166 10^3/uL (150-400)
[2017-07-06 17:01] VITALS: RESP 16
[2017-07-06] MEDS ORDERED: LORazepam 2 MG/ML INJ IVP ONE (17:18)
[2017-07-06 18:24] VITALS: BP 133/76; PULSE 81; O2SAT 95
== END 2017-07-06 18:23 | disposition home or self-care (01) ==
DX: R42 Dizziness and giddiness (principal); E86.9 Volume depletion, unspecified
CPT/HCPCS: 70450; 93005; 96361; 96374; 99285; J2060

== ENCOUNTER 2018-07-09 06:56 | Day surgery (SDC) | payer OTHER ==
[2018-07-09] MEDS ORDERED: CHLORHEXIDINE GLUC HIBICLENS 118 ML BTL TP ONE (07:00)
[2018-07-09] MEDS ORDERED: SURGIFLO MATRIX KIT WITH THROMBIN 8 ML TP ONE ×2 (07:00→08:07)
[2018-07-09] MEDS ORDERED: BUPIVACAINE/EPI 0.25% 30 ML SDV ONE (07:01)
[2018-07-09] MEDS ORDERED: BACITRACIN 50,000 UNITS/10 ML SYR IRR ONE (07:01)
--- NOTE | 2018-07-09 07:01 | PDANEPAE ---
ANE Past Medical History - Cardiovascular History Hx Hypertension: No Hx Arrhythmias: No Hx Chest Pain: No Hx Coronary Artery / Peripheral Vascular Disease: No Hx CHF / Valvular Disease: No Hx Palpitations: No - Pulmonary History Hx COPD: No Hx Asthma/Reactive Airway Disease: No Hx Recent Upper Respiratory Infection: No Hx Oxygen in Use at Home: No Hx Sleep Apnea: No Sleep Apnea Screening Result - Last Documented: Negative - Neurologic History Hx Cerebrovascular Accident: No Hx Seizures: No Hx Dementia: No Neurologic History Comment: HX MIGRAINES - Endocrine History Hx Diabetes: No - Renal History Hx Renal Disorders: No - Liver History Hx Hepatic Disorders: No Hepatic History Comment: HX PANCREATITIS - Neurological & Psychiatric Hx Hx Neurological and Psychiatric Disorders: No Neurological / Psychiatric History Comment: BIPOLAR. DEPRESSION - Cancer History Hx Cancer: No - Congenital Disorder History Hx Congenital Disorders: No - GI History Hx Gastrointestinal Disorders: Yes Gastrointestinal History Comment: CONSTIPATION, IBS - Other Health History Other Health History: LOW BACK PAIN. NEURALGIA. PARESTHESIS. DJD. bruises easily - Chronic Pain History Chronic Pain: Yes (BACK) - Surgical History Prior Surgeries: R SHOULDER 2010spinal fusion 2016. THUMB 2009. LASIK, THUMB 2004. CHOLECYSTECTOMY 2002. BREAST REDUCTION 1975. BTL 1974. ANKLE REPAIR 1974 ANE Review of Systems Review of Systems: - Exercise capacity Exercise capacity: limited by disability METS (RN): 3 METS ANE Patient History - Allergies Allergies/Adverse Reactions: No Known Allergies Allergy (Verified 07/03/18 10:30) - Home Medications Home medications: home medication list seen and reviewed Home Medications: Calcium Carbonate [Oyster Shell Calcium 500 mg (*)] 08/01/15 [Last Taken ] Citalopram Hydrobromide [celeXA 10 MG] 08/01/15 [Last Taken 05/06/17] LORazepam [Ativan (*)] 08/01/15 [Last Taken 04/30/17] [place] Carbonate 08/01/15 [Last Taken 05/06/17] [place] Carbonate 08/01/15 [Last Taken 05/07/17 06:15] Multivitamins [Multivitamin (*)] 08/01/15 [Last Taken 04/30/17] OXcarbazepine [Trileptal 300mg (*)] 08/01/15 [Last Taken 05/06/17] OXcarbazepine [Trileptal 300mg (*)] 08/01/15 [Last Taken 05/07/17 06:15] buPROPion SR [Wellbutrin 100mg SR (*)] 08/01/15 [Last Taken 05/07/17 06:15] Melatonin [Melatonin 3 MG (*)] 03/29/17 [Last Taken 05/06/17] Polyethylene Glycol 3350 [Miralax 17 gm (*)] 03/29/17 [Last Taken 05/06/17] Acetaminophen [Tylenol ES 500 mg (*)] 07/03/18 [Last Taken Unknown] Methocarbamol [Robaxin 750 mg (*)] 07/03/18 [Last Taken Unknown] traMADol [Ultram 50 mg (*)] 07/03/18 [Last Taken Unknown] - NPO status NPO Status: no food or drink >8 hours - Anes Hx Hx Anesthesia Complications (with details): 2016 - states that she does not remember all 8 days of her hospitalization and had to go to rehab due to anesthesia. 2017 - anesthesia went fine. - Smoking Hx Smoking Status: Never smoked - Family Anes Hx Family Hx Anesthesia Complications: NONE ANE Labs/Vital Signs - Vital Signs Vital Signs: reviewed preoperatively; see RN documention for details Height: 160.02 cm Weight: 58.967 kg ANE Physical Exam - Airway Neck exam: FROM Mallampati Score: Class 1 Mouth exam: normal dental/mouth exam - Pulmonary Pulmonary: clear to auscultation - Cardiovascular Cardiovascular: regular rate and rhythym - ASA Status ASA Status: III ANE Anesthesia Plan Anesthesia Plan: general endotracheal anesthesia
[2018-07-09] MEDS ORDERED: PETROLAT,WHT/MIN OIL/SOD CHL 3.5 GM OPHT.OINT ONE (07:09)
[2018-07-09] MEDS ORDERED: REMIFENTANIL HCL 1 MG VIAL ONE (07:18)
[2018-07-09] MEDS ORDERED: PROPOFOL 200 MG/20 ML VIAL ONE (07:18)
[2018-07-09] MEDS ORDERED: PROPOFOL/EMULSION 500 MG/50 ML BOTTLE IV ONE (07:18)
[2018-07-09] MEDS ORDERED: LIDOCAINE 1% 2 ML INJ ID PRN (07:28)
[2018-07-09] MEDS ORDERED: LR 1,000 ML IV ONE (07:28)
[2018-07-09] MEDS ORDERED: GLYCOPYRROLATE 0.2 MG/1 ML VIAL ONE ×2 (07:29→09:22)
[2018-07-09] MEDS ORDERED: fentaNYL 100 MCG/2 ML INJ ONE ×4 (07:31→11:24)
[2018-07-09] MEDS ORDERED: GABAPENTIN 300 MG CAP PO ONE (07:37)
[2018-07-09] MEDS ORDERED: ACETAMINOPHEN 500 MG TAB PO ONE (07:37)
[2018-07-09] MEDS ORDERED: TRANEXAMIC ACID 1,000 MG in NS 100 ML IV ONE (07:37)
[2018-07-09] MEDS ORDERED: ceFAZolin 2 GM/DEXTROSE 100 ML IV ONE (07:37)
[2018-07-09] MEDS ORDERED: morphINE SR 15 MG TAB PO ONE (07:39)
--- NOTE | 2018-07-09 07:39 | PDHPUP ---
History & Physical Update H&P update statement: This history and physical update is based on an assessment of the patient which was completed after admission or registration (within 24 hours), but prior to the surgery/procedure. H&P update: H&P reviewed & patient examined, no change in patient's condition since H&P completed
[2018-07-09] MEDS ORDERED: THROMBIN (BOVINE) 5,000 UNIT VIAL TP ONE (08:11)
[2018-07-09] MEDS ORDERED: DEXAMETHASONE 4 MG/ML VIAL ONE (08:16)
[2018-07-09] MEDS ORDERED: ROCURONIUM 50 MG/5 ML VIAL ONE (08:16)
[2018-07-09] MEDS ORDERED: ONDANSETRON 4 MG/2 ML VIAL ONE (08:17)
[2018-07-09] MEDS ORDERED: PHENYLEPHRINE HCL 100 MCG/ML SYR ONE (09:08)
[2018-07-09] MEDS ORDERED: ePHEDrine SULFATE 25 MG/5 ML SYR ONE (09:08)
[2018-07-09] MEDS ORDERED: HYDROmorphONE/DILAUDID 2 MG/ML INJ IVP PRN (09:14)
[2018-07-09] MEDS ORDERED: PHENYLEPHRINE HCL 100 MCG/ML SYR IVP PRN (09:14)
[2018-07-09] MEDS ORDERED: METOCLOPRAMIDE 10 MG/2 ML VIAL IVP PRN (09:14)
[2018-07-09] MEDS ORDERED: PROMETHAZINE HCL 25 MG/ML INJ IVP PRN (09:14)
[2018-07-09] MEDS ORDERED: ONDANSETRON 4 MG/2 ML VIAL IVP PRN (09:14)
[2018-07-09] MEDS ORDERED: ALBUTEROL 3 ML DEYVIAL IH PRN (09:14)
[2018-07-09] MEDS ORDERED: NALOXONE HCL 0.4 MG/ML INJ IVP PRN (09:14)
[2018-07-09] MEDS ORDERED: oxyCODONE IR 5 MG TAB PO PRN (09:14)
[2018-07-09] MEDS ORDERED: LR 500 ML IV PRN (09:14)
[2018-07-09] MEDS ORDERED: ACETAMINOPHEN 500 MG TAB PO PRN (09:14)
[2018-07-09] MEDS ORDERED: DIAZEPAM 5 MG/ML 1 ML SYR IVP PRN (09:14)
[2018-07-09] MEDS ORDERED: MEPERIDINE 25 MG/0.5 ML AMP IVP PRN (09:14)
[2018-07-09] MEDS ORDERED: HYDROCODONE/APAP 5/325 TAB PO PRN (09:14)
[2018-07-09] MEDS ORDERED: LABETALOL HCL 5 MG/ML 20 ML MDV IVP PRN (09:14)
[2018-07-09] MEDS ORDERED: DEXAMETHASONE 4 MG/ML VIAL IVP PRN (09:14)
[2018-07-09] MEDS ORDERED: NEOSTIGMINE METHYLSULFATE 5 MG/5 ML SYR ONE (09:22)
[2018-07-09] MEDS ORDERED: METHOCARBAMOL 1,000 MG in NS 50 ML IVP STA (09:46)
--- NOTE | 2018-07-09 09:59 | POSTOPPROG ---
Post Op Note Date of Operation: 07/09/18 Surgeon: Gio Miller Technical Staff Assistant: NENA Lacey Anesthesia: GET(General Endotracheal) Pre-op Diagnosis: sacroilitis Post-op Diagnosis: sacroilitis Indication: sacroilitis Procedure: Bilateral SI joint fusion Inf/Abcess present in the surg proc area at time of surgery?: No EBL: Minimal PA Addendum - Addendum .: S: resting comfortably O: NAD A&Ox3 MAEx4 5/5 and equal in BUE and BLE A/p 78y/o F s/p Bilateral SI joint fusion -Advance diet as tolerated -Optimize pain management, ice to surgical area -AP xray of pelvis pending in PACU -November d/c home when meets PACU criteria -Please notify NS with any change in neuro/motor exam
--- NOTE | 2018-07-09 10:04 | GOP ---
DATE OF OPERATION: 07/09/2018 SURGEON: Gio Miller MD PLATE EMBOSSER: NENA Palomino ANESTHESIA: General. PREOPERATIVE DIAGNOSIS: 1. Bilateral sacroiliac joint dysfunction with sacroiliitis. 2. Treatment refractory to nonoperative intervention. POSTOPERATIVE DIAGNOSIS: 1. Bilateral sacroiliac joint dysfunction with sacroiliitis. 2. Treatment refractory to nonoperative intervention. PROCEDURE PERFORMED: 1. Right-sided minimally invasive sacroiliac joint fusion with a 50 and a 40 x 12 mm Fleetwood screw filled with morselized autograft and allograft. 2. Left-sided minimally invasive sacroiliac joint fusion with a 50 and a 40 x 12 mm [place] screw filled with morselized autograft and allograft. 3. Use of intraoperative 3D Stealth navigation. 4. Use of intraoperative fluoroscopy, less than 1 hour physician time 5. Use of Neuromonitoring. FINDINGS: per imaging SPECIMENS: None. ESTIMATED BLOOD LOSS: 10 mL. INDICATIONS: The patient is a very pleasant 78-year-old woman, who has undergone prior lumbar fusion by myself. She presented with worsening low back pain and was discovered to have sacroiliitis. She presents now for surgical intervention. DESCRIPTION OF PROCEDURE: Patient was brought to the operating theater and underwent general endotracheal anesthesia without complications. She had Venodynes, SUZANNE hose, and the appropriate lines placed by Anesthesia. She was flipped prone onto a Tin table. All bony processes inspected and padded. The bilateral buttocks and the posterior superior iliac spine were identified and prepped and draped in the usual sterile surgical fashion. A time-out was completed per protocol. The patient received antibiotics within 1 hour of incision. The right-sided posterior superior iliac spine was identified and infiltrated with Marcaine with epinephrine. A small incision was made over these tissues. We placed a percutaneous pin into the PSIS and brought the 3D Stealth navigation system into the field. At this point a 3D Stealth navigation spin was completed. Using 3D Stealth navigation we picked our entry point that would give us the best approach across the bilateral SI joints. This was marked as a vertical incision over both buttocks. Both incisions were infiltrated with Marcaine with epinephrine. The incisions were then taken down with the scalpel blade through subcutaneous tissues to the level of the periosteum. Using the navigation system, we then drilled and tapped 2 holes across each sacroiliac joint on each side. We then measured and placed a 12 x 40 and a 12 x 50 mm [place] screw across each SI joint filled with morselized autograft and allograft. Another 3D Stealth navigation spin demonstrated good placement of the hardware. The wounds were irrigated copiously with bacitracin irrigation. A small layer of FloSeal was placed over the screws. We then closed the wounds in multiple layers including Vicryl sutures in deep layers and Dermabond for the skin. The patient's wounds were dressed sterilely. She was then awakened, extubated and taken to the recovery room in stable condition. There were no complications and no noted changes on neuromonitoring throughout the procedure. COMPLICATION: None. /[id number]/MODL [email or web address]
[2018-07-09] MEDS ORDERED: ACETAMINOPHEN 325 MG TAB ONE (10:34)
[2018-07-09] MEDS: fentaNYL 100 MCG/2 ML INJ IVP PRN ×2 (10:39→11:26)
--- NOTE | 2018-07-09 11:28 | POSTANESTH ---
Post Anesthetic Evaluation Cardiovascular Status: Normal, Stable Respiratory Status: Normal, Stable Level of Consciousness/Mental Status: Can Participate in Eval Pain Control: Adequate, Prn Tx Ordered Nausea/Vomiting Control: Adequate, Prn Tx Ordered Complications Possibly Related to Anesthesia: None Noted
[2018-07-09] MEDS ORDERED: HYDROCODONE/APAP 5/325 TAB ONE (11:43)
[2018-07-09 13:14] VITALS: BP 115/72
== END 2018-07-09 12:45 | disposition home or self-care (01) ==
LOC: FSGY 06:56 → EEVIPCON 07:15 → FSGY 12:45
PROVIDERS: ATTEND Neurological Surgery
DX: M46.1 Sacroiliitis, not elsewhere classified (principal); M48.061 Spinal stenosis, lumbar region without neurogenic claudication; Z98.1 Arthrodesis status
CPT/HCPCS: C1713; J0690; J1100; J2370; J2405; J2704; J2710; J2800; J3010